=== PATIENT | female | born 1940 | race Asian ===

== ENCOUNTER 2016-12-13 23:33 | Emergency (ER) | payer OTHER ==
[2016-12-14 02:03] LABS: CALCIUM 8.6 mg/dL (8.5-10.1); CHLORIDE SERUM 104 mmol/L (98-107); CREATININE SERUM 0.9 mg/dL (0.6-1.0); GLUCOSE SERUM 117 mg/dL (74-106); POTASSIUM SERUM 3.8 mmol/L (3.5-5.1); SODIUM SERUM 138 mmol/L (136-145)
[2016-12-14 02:50] LABS: RED CELL DISTRIBUTION WIDTH 14.2 % (11.5-14.5)
[2016-12-14 02:57] LABS: BASOPHIL % 2.2 % (0-2); PLATELET COUNT 202 x10^3mcL (130-400)
[2016-12-14 04:00] VITALS: BP 132/74
== END 2016-12-14 04:00 | disposition home or self-care (01) ==
LOC: ED 23:33
PROVIDERS: Emergency Medicine
DX: S20.211A Contusion of right front wall of thorax, initial encounter (principal); S00.83XA Contusion of other part of head, initial encounter; I48.91 Unspecified atrial fibrillation; W17.89XA Other fall from one level to another, initial encounter; Y93.89 Activity, other specified; Y92.89 Other specified places as the place of occurrence of the external cause; Y99.8 Other external cause status
CPT/HCPCS: 36415